=== PATIENT | male | born 1995 | race Caucasian/White ===

== ENCOUNTER 2021-08-15 01:46 | Day surgery (SDC) | payer BC, SELFPAY ==
[2021-08-07 15:44] VITALS: BMI 32.3
--- NOTE | 2021-08-13 16:23 | PM.IMHP ---
H&P: HPI History of Present Illness Date/Time: 08/13/21 16:23 Chief Complaint: chronic tonsillitis tonsillar asymmetry throat pain recurrent tonsillitis Narrative: the patient presents for planned surgical procedure no change in history no change in symptoms Review of Systems Constitutional: Constitutional: Denies fatigue, Denies fever(s) and Denies lethargy Eyes: Eyes: Denies blurry vision and Denies change in vision ENT: Reports as per HPI Cardiovascular: Cardiovascular: Denies chest pain Respiratory: Respiratory: Denies cough Endocrine: Endocrine: Denies fatigue Hematologic/Lymphatic: Hematologic/Lymphatic: Denies easy bleeding, Denies easy bruising and Denies lymphadenopathy Allergic/Immunologic: Allergic/Immunologic: Denies seasonal rhinorrhea [facility] Social History Social History Smoking packs per day: 0.5 Smoking cigarettes per day: 10.0 Years smoked: 6 Smoking pack-years: 3.00 Smoking status: Current every day smoker Tobacco type: cigarettes Alcohol intake: never Substance use: never Substance use type: does not use Living arrangements: alone Gender identity (if verbalized by the patient): Male Spiritual care concerns: No Meds Home Medications and Allergies Home Medications Medication Instructions Recorded Confirmed Type clonazepam [Klonopin] 0.5 mg PO BID 09/24/19 08/07/21 History lorazepam 1 mg PO PRN PRN 09/24/19 08/07/21 History sertraline 100 mg PO DAILY 08/07/21 08/07/21 History Allergies Allergy/AdvReac Type Severity Reaction Status Date / Time No Known Allergies Allergy Verified 08/07/21 15:42 Exam Const: General: cooperative, healthy appearing, comfortable, well developed and alert HENMT: Head: normal to inspection, normocephalic and atraumatic Ears: hearing grossly normal bilaterally, external ears normal, TM's normal bilaterally and EAC's normal General nose exam: Normal external nose present, Normal nares present, No nasal polyps present, Normal nasal mucous membranes and turbinates present and Normal septum present Face and sinus: normal facial exam Mouth: Yes Normal oral and palatal mucosa present, Yes lip normal, Yes tongue normal, Yes oropharynx normal and Yes moist mucous membranes Teeth and gingiva: dentition normal and gingiva normal Throat: posterior oropharynx normal, tonisls abnormal ( Asymmetric edematous erythematous) and uvula midline Eyes: General: appearance normal, both eyes and all related structures Periorbital: periorbital findings normal Eyelids: eyelids normal Conjunctivae: conjunctivae normal Sclera: sclerae normal Neck: Neck: normal visual inspection, full ROM and no lymphadenopathy Thyroid: thyroid normal Lymphatic: no lymphadenopathy noted Resp: Effort & Inspection: normal respiratory effort and able to speak in complete sentences Cardio: Jugular venous distension: no JVD Neuro: Cranial nerves: Yes CN's II-XII intact bilaterally Assessment and Plan Assessment and plan (1) Chronic tonsillitis: Code(s): J35.01 - Chronic tonsillitis Status: Acute Assessment and Plan: plan is for the OR for tonsillectomy risks discussed in great detail including bleeding infection damage to surrounding structures throat pain ear pain coughing tooth pain tongue pain numbness of all the aforementioned structures foul smells 3-5% chance of postoperative bleeding. Patient voiced understanding and agreed I would send these tonsil separately given the abnormal appearance of the right side (2) Recurrent tonsillitis: Code(s): J03.91 - Acute recurrent tonsillitis, unspecified Status: Acute (3) Throat pain: Code(s): R07.0 - Pain in throat Status: Acute (4) Tonsil asymmetry: Code(s): J35.8 - Other chronic diseases of tonsils and adenoids Status: Acute
[2021-08-15 06:22] VITALS: BP 141/62; PULSE 69; RESP 20; TEMP 36.1; O2SAT 100
[2021-08-15] MEDS: LACTATED RINGERS 1,000 ML 30 ML IV CONT (06:35)
[2021-08-15] MEDS: ACETAMINOPHEN 500 MG TABLET 1000 MG PO (06:36)
--- NOTE | 2021-08-15 06:45 | WPDANESEPPF ---
Anes - Initial Pre Proc Eval Procedure: Operation Date: 08/15/21 07:30 Proposed Procedures p Tonsillectomy - Juan Daniel Sanchez MD Date/Time: 08/15/21 06:45 Surgeon: Juan Daniel Sanchez MD Pre Op Diagnosis: chronic tonsilitis Patient Data Age: 25 Gender: M Height: 1.83 m Weight: 107.96 kg Allergies Allergy/AdvReac Type Severity Reaction Status Date / Time No Known Allergies Allergy Verified 08/07/21 15:42 Home Medications Medication Instructions Recorded Confirmed Type clonazepam [Klonopin] 0.5 mg PO BID 09/24/19 08/15/21 History lorazepam 1 mg PO PRN PRN 09/24/19 08/15/21 History sertraline 100 mg PO DAILY 08/07/21 08/15/21 History Patient hx anesthesia problems: none Family hx anesthesia problems: none Results Review: All pre-operative results and documents have been reviewed as part of the pre-operative evaluation. [facility] Past Medical History Medical History Anxiety Asthma Hypertension Suicide attempt Social History Social History Smoking packs per day: 0.5 Smoking cigarettes per day: 10.0 Years smoked: 6 Smoking pack-years: 3.00 Smoking status: Current every day smoker Tobacco type: cigarettes Alcohol intake: never Substance use: never Substance use type: does not use Living arrangements: alone Gender identity (if verbalized by the patient): Male Spiritual care concerns: No Anes - Eval Final PreProcedure Day of Procedure 08/15/21 06:45 Patient weight: obese Heart: regular rate and rhythm Lungs: clear to auscultation Airway: Mallampati scale class II Neurological: alert and oriented Last oral intake: >/= 8 hours ASA classification: III Emergent: no Anesthetic plan: proceed Anesthesia type and monitoring: general ETT and standard monitoring Results Review: All pre-operative results and documents have been reviewed as part of the pre-operative evaluation. Informed Consent: The patient's anesthetic plan and its attendant risks and benefits were discussed with the patient/family/POA. Questions were solicited and answers provided to the satisfaction of the patient/family/POA.
--- NOTE | 2021-08-15 07:05 | WPDHPUPDATE1 ---
History and Physical Update Update Date/Time: 08/15/21 07:05 History and Physical has been reviewed, including an updated exam of the patient. There are NO changes in the patient's condition. Risks, benefits, and alternatives have been discussed and questions answered. Patient agrees to proceed with procedure.
[2021-08-15] MEDS: OXYMETAZOLINE HCL 0.05% NAS 15 ML BTL (*BKC) 1 SPRAY NASAL (07:50)
[2021-08-15 08:59] VITALS: BP 159/97; PULSE 94; RESP 18; TEMP 36.2; O2SAT 100
[2021-08-15] MEDS: fentaNYL CITRATE INJ (*CRX) 100 MCG/2 ML VIAL 25 MCG IV PUSH ×3 (09:07→09:19)
--- NOTE | 2021-08-15 09:08 | W.PM.PROC2 ---
Procedure Note - Detailed Date of Procedure 08/15/21 Pre-op Diagnosis chronic tonsilitis Post-op Diagnosis same Procedure Performed Tonsillectomy Surgeon Juan Daniel Sanchez MD Anesthesia general Indications see above Findings large endophytic 3+ tonsils cryptic significant bleeding throughout the procedure large artery supplying the midpole bilaterally likely off the ascending pharyngeal, tonsils were symmetric intraoperatively sent together Description of Procedure the patient was correctly identified and consent was verified in the preoperative holding area. The patient was brought to the operating room and a time-out performed. General anesthesia was induced and endotracheal tube was secured the patient's airway taped to the midline the bed was turned. The patient was prepped and draped for the aforementioned procedure. Second timeout performed. Using Bovie electrocautery at a setting of 12 the tonsils were dissected in the extracapsular plane. The findings are noted above. There was significant bleeding throughout the procedure. Blood loss was approximately 100 cc. The dissection occurred after placement of the McIvor mouth gag. Hemostasis was achieved using the intermittent application of a clamp on the right side, and Bovie suction electrocautery at a setting of 15. Following the procedure the McIvor mouth gag was lowered for 30 seconds and reopened to reveal tonsils or postoperative tonsillar fossas which were no longer bleeding, Hematomas applied to the bilateral tonsillar fossa. following the case hemostasis was excellent. An NG excuse me an OG tube was dropped to reveal no blood in the stomach. Total blood loss 100 cc. Care the patient was turned over to Anesthesiology. I performed all dictated portions of the procedure. There were no immediate complications. Estimated Blood Loss -100.0 Drains No Packing No Pathology yes Complications No immediate complications Condition stable Disposition PACU
[2021-08-15 09:10] VITALS: BP 157/98; PULSE 83; RESP 14; O2SAT 100
[2021-08-15 09:20] VITALS: BP 145/93; PULSE 85; RESP 16; O2SAT 93
[2021-08-15 09:27] VITALS: BP 151/95; PULSE 82; RESP 15; O2SAT 91
[2021-08-15 09:35] VITALS: BP 152/92; PULSE 61; RESP 16
--- NOTE | 2021-08-15 09:44 | SUR.PHASEII ---
0935 pt is up in chair, refusing drink or popsicle, and is adamant about leaving. vital signs stable on room air, no coughing or bleeding noted at this time. throat pain rated at 3/10. notified ride waiting for her to arrive to discharge
--- NOTE | 2021-08-15 10:08 | SUR.PHASEII ---
1000 pt refused to take the wheelchair out, beatrice escorted him out while he ambulated
== END 2021-08-15 10:02 | disposition home or self-care (01) ==
PROVIDERS: PCP Emergency Medicine; Visit Provider Otolaryngology
PROC: (CPT 42826; principal; 2021-08-15 07:30)
DX: J35.01 Chronic tonsillitis (principal); F17.210 Nicotine dependence, cigarettes, uncomplicated
CPT/HCPCS: 42826; 88302; A9270; J0330; J1100; J2250; J2405; J2704; J3010; J7120

== ENCOUNTER 2021-08-26 05:09 | Emergency (ER) | payer BC, SELFPAY ==
--- NOTE | 2021-08-26 05:22 | ED.GENADULT ---
HPI - General Adult General Chief complaint: Unspecified Stated complaint: Tosnilectomy vomiting blood Time Seen by Provider: 08/26/21 05:12 Source: RN notes reviewed History of Present Illness HPI narrative: Patient presents emergency department from home for postoperative bleeding. Patient states he had his tonsils removed by Dr. Sanchez on August 15 states approximately 45 minutes ago he began to have bleeding in the tonsillar region. He denies any direct trauma to the area he states that he immediately came to the emergency department for further evaluation he states his throat has been sore since the surgery he denies any fevers or chills chest pain shortness of breath Related Data Home Medications Medication Instructions Recorded Confirmed clonazepam [Klonopin] 0.5 mg PO BID 09/24/19 08/15/21 lorazepam 1 mg PO PRN PRN 09/24/19 08/15/21 sertraline 100 mg PO DAILY 08/07/21 08/15/21 Allergies Allergy/AdvReac Type Severity Reaction Status Date / Time No Known Allergies Allergy Verified 08/26/21 06:49 Review of Systems Review of Systems: Gen.: Denies fevers or chills ENT: See HPI Respiratory: Denies shortness of breath or cough CV: Denies chest pain or palpitations GI: Denies abdominal pain nausea, emesis Musculoskeletal: Denies back pain or muscle pain Neuro: Denies numbness, tingling, weakness or focal weakness Skin: Denies rash Except as documented, all other systems reviewed and negative [facility] Past Medical History Medical History Anxiety Asthma Hypertension Suicide attempt Social History Social History Smoking packs per day: 0.5 Smoking cigarettes per day: 10.0 Years smoked: 6 Smoking pack-years: 3.00 Smoking status: Current every day smoker Tobacco type: cigarettes Alcohol intake: never Substance use: never Substance use type: does not use Gender identity (if verbalized by the patient): Male Spiritual care concerns: No Exam Narrative: APPEARANCE: No acute distress, nontoxic, resting in bed EYES: EOMI HEENT: Normocephalic, atraumatic nares patent, blood seen in the posterior pharynx with bilateral tonsils removed airway patent tolerating own secretions RESPIRATORY: No respiratory distress Clear to auscultation bilaterally with no rhonchi wheezing or rales. CARDIOVASCULAR: Tachycardic and regular without murmurs rubs or gallops. ABDOMINAL: Soft, nontender, nondistended, no rebound or guarding MUSCULOSKELETAl: Moves all extremities. NEURO: Awake and alert. Following commands, speech normal, no focal deficits SKIN:: Warm, dry. No rashes lesions or abrasions PSYCHIATRIC: Normal affect/mood, Course Course Emergency Course: Dr. Peters in the emergency department to evaluate the patient 0600 Dr. peters discussed with patient wishing to take patient to the OR. The patient refusing OR at this time. I will discussed with the patient as well discussed the risk of bleeding out from tonsils and patient continuing to refuse OR states that he does not wish to pay to return to the OR discussed with patient the emergent need for OR and risk ofdeath with risk or permanent disability and continues to refuse at this time Dr. Sacnhez came to the emergency department he was able to localize bleeding and cauterize in ED states patient may be discharged to follow-up as an outpatient Discussed with patient results of workup and diagnosis. Discussed need for follow-up with primary care, proper use of medication, and reasons to return to the emergency department. Patient understands and agrees to current treatment plan Vital Signs Vital signs: Vital Signs Temperature 98.2 F 08/26/21 05:33 Pulse Rate 93 08/26/21 05:33 Respiratory Rate 16 08/26/21 05:33 Blood Pressure 146/106 H 08/26/21 05:33 Pulse Oximetry 100 08/26/21 05:33 Temperature 98.2 F 08/26/21
--- NOTE | 2021-08-26 05:26 | ECG_ITS ---
Measurements Intervals [place] Rate: 134 P: 23 RI: 136 QRS: -10 QRSD: 94 T: 41 QT: 310 QTc: 464 Interpretive Statements SINUS TACHYCARDIA LEFT VENTRICULAR HYPERTROPHY AND ST-T CHANGE INFERIOR INFARCT, AGE INDETERMINATE BASELINE ARTIFACT- II, III, AVR, AVL, AVF, V1, V3-V6 ABNORMAL ECG Electronically Signed On 08-26-2021 6:10:16 CDT by Jam Hairston D.O.
[2021-08-26] MEDS: SODIUM CHLORIDE 0.9% IV 1,000 ML 999 ML IV CONT (05:28)
[2021-08-26 05:33] VITALS: BP 146/106; PULSE 93; RESP 16; TEMP 36.8; O2SAT 100
[2021-08-26 05:36] LABS: Basophils Absolute Auto 0.1 K/mm3 (0.0-0.1); Basophils Percent Auto 0.8 % (0.2-1.2); Eosinophils Absolute Auto 0.2 K/mm3 (0-0.3); Eosinophils Percent Auto 1.8 % (0-4.4); Hematocrit 51.2 % (42.0-52.0); Hemoglobin 18.5 g/dL (14.0-18.0); Immature Granulocyte Absolute 0.04 K/mm3 (0.00-0.031); Immature Granulocyte Percent A 0.4 % (0-0.5); Lymphocytes Absolute Auto 3.53 K/mm3 (0.9-3.2); Lymphocytes Percent Auto 37.4 % (18.3-44.2); Mean Corpuscular HGB Conc 36.1 g/dl (32-36); Mean Corpuscular Hemoglobin 30.1 pg (26-34); Mean Corpuscular Volume 83.4 fl (80-100); Mean Platelet Volume 9.9 fl (7.4-10.4); Monocytes Percent Auto 10.7 % (2.6-8.5); Neutrophils Absolute Auto 4.6 K/mm3 (1.3-6.7); Neutrophils Percent Auto 48.9 % (45.5-73.1); Platelet Count Result 457 k/mm3 (150-375); Red Blood Count 6.14 M/mm3 (4.6-6.20); Red Cell Distribution Width 12.5 % (11.5-14.5); White Blood Count 9.4 K/mm3 (4.5-10.0)
[2021-08-26 05:48] LABS: INR 0.9; Prothrombin Time 12.4 Seconds (11.1-14.7)
[2021-08-26 05:49] LABS: Partial Thromboplastin Time 26.3 SECONDS (22.3-36.8)
[2021-08-26 05:50] LABS: Anion Gap 17 mmol/L (8-16); Blood Urea Nitrogen 15 mg/dL (9-20); Calcium 10.2 mg/dL (8.4-10.2); Carbon Dioxide 21 mmol/L (22-30); Chloride 103 mmol/L (98-107); Estimated CRCL calculation 125 ml/min; Estimated Glomerular Filt Rate > 60; Glucose 124 mg/dL (65-110); Potassium 3.3 mmol/L (3.4-5.0); Sodium 141 mmol/L (137-145)
[2021-08-26 06:37] VITALS: BP 159/66; PULSE 96; RESP 16; O2SAT 99
--- NOTE | 2021-08-26 06:45 | PC.NURSE ---
Dr. Sanchez at bedside for procedure.
--- NOTE | 2021-08-26 07:15 | WPDCN ---
Assessment and Plan Assessment and plan (1) Hemorrhage, tonsil, postoperative: Status: Acute Assessment and Plan: Patient can resume normal activities same precautions as prior. Bleeding mucosal edges cauterized no further bleeding noted. He should call me and or present to the emergency room with any further bleeding. He should call 911 of severe. All this was conveyed to the patient and his friend. They voiced understanding and agreed. HPI Data of Consult Date/Time: 08/26/21 07:15 Primary Care Provider: Bhupendra Daley MD Consult Narrative Narrative: Carlos Kaplan is a 25 year old male status total post tonsillectomy approximately 10-11 days ago. Reports bleeding overnight. Hemoglobin 18 patient is dehydrated L fluid given. No further bleeding presents to me for further evaluation and treatment in the emergency room. Review of Systems Constitutional: Constitutional: Denies fatigue, Denies fever(s) and Denies lethargy Eyes: Eyes: Denies blurry vision and Denies change in vision ENT: Reports as per HPI Cardiovascular: Cardiovascular: Denies chest pain Respiratory: Respiratory: Denies cough Endocrine: Endocrine: Denies fatigue Hematologic/Lymphatic: Hematologic/Lymphatic: Denies easy bruising and Denies lymphadenopathy Allergic/Immunologic: Allergic/Immunologic: Denies seasonal rhinorrhea [facility] Past Medical History Medical History Anxiety Asthma Hypertension Suicide attempt Social History Social History Smoking packs per day: 0.5 Smoking cigarettes per day: 10.0 Years smoked: 6 Smoking pack-years: 3.00 Smoking status: Current every day smoker Tobacco type: cigarettes Alcohol intake: never Substance use: never Substance use type: does not use Gender identity (if verbalized by the patient): Male Spiritual care concerns: No Meds Home Medications and Allergies Home Medications Medication Instructions Recorded Confirmed Type clonazepam [Klonopin] 0.5 mg PO BID 09/24/19 08/15/21 History lorazepam 1 mg PO PRN PRN 09/24/19 08/15/21 History sertraline 100 mg PO DAILY 08/07/21 08/15/21 History oxycodone 5 mg PO Q12H PRN #10 tablet 08/15/21 Rx Allergies Allergy/AdvReac Type Severity Reaction Status Date / Time No Known Allergies Allergy Verified 08/26/21 06:49 Vital Signs Vital Signs - 24 hr 08/26/21 05:33 08/26/21 06:37 Temperature 36.8 C Pulse Rate 93 96 Respiratory Rate 16 16 Blood Pressure 146/106 H 159/66 H Pulse Oximetry 100 99 Exam Const: General: cooperative, healthy appearing, comfortable, well developed and alert HENMT: Head: normal to inspection, normocephalic and atraumatic Ears: hearing grossly normal bilaterally, external ears normal, TM's normal bilaterally and EAC's normal General nose exam: Normal external nose present, Normal nares present, No nasal polyps present, Normal nasal mucous membranes and turbinates present and Normal septum present Face and sinus: normal facial exam Mouth: Yes Normal oral and palatal mucosa present, Yes lip normal, Yes tongue normal and Yes moist mucous membranes Teeth and gingiva: dentition normal and gingiva normal Throat: posterior oropharynx abnormal (Normal postoperative appearance clot on left) and uvula midline Eyes: General: appearance normal, both eyes and all related structures Periorbital: periorbital findings normal Eyelids: eyelids normal Conjunctivae: conjunctivae normal Sclera: sclerae normal Neck: Neck: normal visual inspection, full ROM and no lymphadenopathy Thyroid: thyroid normal Lymphatic: no lymphadenopathy noted Resp: Effort & Inspection: normal respiratory effort and able to speak in complete sentences Cardio: Jugular venous distension: no JVD Neuro: Cranial nerves: Yes CN's II-XII intact bilaterally Results Labs CBC & Chem 7: 08/26/21 05:23
[2021-08-26 07:29] VITALS: BP 135/69; PULSE 108; RESP 22; O2SAT 98
== END 2021-08-26 07:30 | disposition home or self-care (01) ==
PROVIDERS: Emergency Provider Emergency Medicine; PCP Emergency Medicine
DX: J95.830 Postprocedural hemorrhage of a respiratory system organ or structure following a respiratory system procedure (principal); J45.909 Unspecified asthma, uncomplicated; I10 Essential (primary) hypertension; F41.9 Anxiety disorder, unspecified; F17.210 Nicotine dependence, cigarettes, uncomplicated; R00.0 Tachycardia, unspecified; I51.7 Cardiomegaly; R94.31 Abnormal electrocardiogram [ECG] [EKG]
CPT/HCPCS: 36415; 42960; 80048; 85025; 85610; 85730; 86850; 86900; 86901; 93005; 96360; 99283; J7030